=== PATIENT | male | born 1965 | race American Indian/Alaskan Native ===

== ENCOUNTER 2019-10-07 15:08 | Emergency (ER) | payer SELFPAY ==
--- NOTE | 2019-10-07 16:25 | Emergency Department Report ---
Blank Doc - Documentation Documentation: 54-year-old male that presents with uncontrolled hyperglycemiia. This initial assessment/diagnostic orders/clinical plan/treatment(s) is/are subject to change based on patient's health status, clinical progression and re- assessment by fellow clinical providers in the ED. Further treatment and workup at subsequent clinical providers discretion. Patient/guardians urged not to elope from the ED as their condition may be serious if not clinically assessed and managed. Initial orders include: 1- Patient sent to [facility] for further evaluation and treatment 2- labs 3- UA
[2019-10-07 16:40] LABS: Basophils % (Auto) 0.6 % (0.0-1.8); Eosinophils # (Auto) 0.2 K/mm3 (0.0-0.4); Eosinophils % (Auto) 2.5 % (0.0-4.3); Hematocrit 35.4 % (35.5-45.6); Hemoglobin 12.4 gm/dl (11.8-15.2); Lymphocytes # (Auto) 1.4 K/mm3 (1.2-5.4); Lymphocytes % (Auto) 20.7 % (13.4-35.0); Mean Corpuscular HGB Conc 35 % (32-34); Mean Corpuscular Volume 88 fl (84-94); Monocytes # (Auto) 0.4 K/mm3 (0.0-0.8); Monocytes % (Auto) 6.7 % (0.0-7.3); Platelet Count 303 K/mm3 (140-440); Red Blood Count 4.05 M/mm3 (3.65-5.03); Red Cell Distribution Width 12.6 % (13.2-15.2)
[2019-10-07 17:00] LABS: BUN/Creatinine Ratio 10; Blood Urea Nitrogen 12 mg/dL (9-20); Calcium 8.7 mg/dL (8.4-10.2); Hemolysis Index 7
[2019-10-07] MEDS: SODIUM CHLORIDE 0.9% 1000 ML 1,000 ML IV ONE (19:04)
[2019-10-07] MEDS: cloNIDine 0.1 MG TAB PO ONE (19:04)
[2019-10-07] MEDS: INSULIN REGULAR, HUMAN 100 UNITS/1 ML IV ONE (19:04)
--- NOTE | 2019-10-07 19:18 | XRay Report ---
ACUTE ABDOMINAL SERIES, 3 VIEWS INDICATION / CLINICAL INFORMATION: cough with bloody sputum, constipation. COMPARISON: None available. FINDINGS: PA view of the chest is unremarkable. Cardiac silhouette and pulmonary vascularity are both normal. T he lungs are well-expanded and are clear. Supine and erect views of the abdomen demonstrate a moderate to large amount of stool throughout the colon consistent with constipation. No significant fecal impaction identified, however. The remainder of the bowel gas pattern is normal. No free air. IMPRESSION: 1. Constipation. 2. No other acute finding within the abdomen or chest. Signer Name: Kimberly Edwards MD Signed: 10/07/2019 7:13 PM Workstation Name: [id number]
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
[2019-10-07 21:04] VITALS: BP 162/80
== END 2019-10-07 21:04 | disposition home or self-care (01) ==
LOC: ED 15:08
DX: K59.00 Constipation, unspecified (principal); J20.9 Acute bronchitis, unspecified; R04.2 Hemoptysis; I16.0 Hypertensive urgency; E11.65 Type 2 diabetes mellitus with hyperglycemia; F14.10 Cocaine abuse, uncomplicated; I10 Essential (primary) hypertension; Z79.899 Other long term (current) drug therapy
CPT/HCPCS: 36415; 74022; 80048; 82805; 82962; 85025; 96361; 96374; 99284; J7030; J1815